=== PATIENT | female | born 1950 | race Caucasian/White ===

== ENCOUNTER 2019-11-05 10:48 | Inpatient (IN) ==
[2019-10-24 17:35] LABS: Basophils # (auto) 0.03 K/uL (0-0.2); Basophils % (auto) 0.4 %; Eosinophils # (auto) 0.06 K/uL (0-0.5); Eosinophils % (auto) 0.8 %; Hematocrit (blood only) 38.5 % (37-47); Hemoglobin 12.7 g/dL (12.0-16.0); Immature Granulocytes # (auto) 0.01 K/uL (0.00-0.02); Immature Granulocytes % (auto) 0.1 %; Lymphocytes # (auto) 2.25 K/uL (1.2-3.4); Lymphocytes % (auto) 28.7 %; Mean Corpuscular Hemoglobin 30.8 pg (25-34); Mean Corpuscular Volume 93.4 fL (80-100); Mean Platelet Volume 10.1 fL (7.4-10.4); Monocytes # (auto) 0.75 K/uL (0.11-0.59); Monocytes % (auto) 9.6 %; Neutrophils # (auto) 4.74 K/uL (1.4-6.5); Neutrophils % (auto) 60.4 %; Platelet Count 285 K/uL (130-400); RDW Coefficient of Variation 14.2 % (11.5-14.5); RDW Standard Deviation 48.5 fL (36.4-46.3); Red Blood Count 4.12 M/uL (4.2-5.4); White Blood Count 7.84 K/uL (4.8-10.8)
[2019-10-24 17:46] LABS: INR 1.2 (0.9-1.1); Partial Thromboplastin Ratio 0.9; Partial Thromboplastin Time 26.1 Seconds (21.0-31.0)
[2019-10-24 17:51] LABS: Blood Urea Nitrogen 17 mg/dl (7-18); Calcium 9.5 mg/dl (8.5-10.1); Carbon Dioxide 26 mmol/L (21-32); Chloride 106 mmol/L (98-107); Est GFR (African American) 69.8; Est GFR (Non-African American) 60.3; Glucose 84 mg/dl (70-99); Potassium 4.2 mmol/L (3.5-5.1); Sodium 139 mmol/L (136-145)
--- NOTE | 2019-10-25 12:23 | Anesthesiology Consultation ---
Date of Service October 25, 2019 Assessment & Plan (1) Encounter for pre-operative examination: Case originally scheduled for May, R/S due to pandemic. Seen by Corine Martel PA-C on 04/20/19. PCP Clearance 05/04/19 = "Pt is currently in stable condition and at low risk for cardiac or pulmonary complications with the proposed procedure." COVID Status: As of 10/21 nurse assessment, patient denies travel to endemic area, known exposure/sick contacts, or symptoms of COVID19. Preoperative COVID19 testing to be completed per surgeon's office's arrangements. Chart Review Chart Review: Acceptable Risk for Surgery and Patient NOT seen in Pre Admission Testing History Surgery Operation Date: 11/05/19 07:30 Proposed Procedures p Right Reverse Total Shoulder Arthroplasty - Leonides Pro DO Height/Weight Height: 4 ft 11.5 in Weight: 66.678 kg Allergies Allergy/AdvReac Type Severity Reaction Status Date / Time No Known Allergies Allergy Verified 10/22/19 15:00 Medications Home Medications Medication Instructions Recorded Confirmed Last Taken amitriptyline 100 mg tablet 100 mg PO HS 04/09/19 10/22/19 Unknown ascorbic acid (vitamin C) 1,000 mg 1 gm PO QAM 04/09/19 10/22/19 Unknown tablet aspirin 81 mg tablet,delayed 81 mg PO QAM 04/09/19 10/22/19 Unknown release docusate sodium 100 mg capsule 100 mg PO QPM 04/09/19 10/22/19 Unknown ezetimibe 10 mg tablet 10 mg PO HS 04/09/19 10/22/19 Unknown latanoprost 0.005 % eye drops 1 drops OP QPM 04/09/19 10/22/19 Unknown lisinopril 10 mg tablet 10 mg PO QAM 04/09/19 10/22/19 Unknown lorazepam 1 mg tablet 1 mg PO TID PRN 04/09/19 10/22/19 Unknown meloxicam 7.5 mg tablet 7.5 mg PO QAM 04/09/19 10/22/19 Unknown omeprazole 20 mg capsule,delayed 20 mg PO QAM 04/09/19 10/22/19 Unknown release oxybutynin 3.9 mg/24 hr semiweekly 3.9 mg TRANSDERMAL 2XWK 04/09/19 10/22/19 Unknown transdermal patch cholecalciferol (vitamin D3) 1,000 unit PO QAM 04/17/19 10/22/19 Unknown [Vitamin D3] Past Medical History Medical History Arthritis Eye pressure preventative eye drops/denies glaucoma GERD (gastroesophageal reflux disease) controlled High blood pressure History of anxiety Hyperlipidemia Hypertension Osteoarthritis Overactive bladder Past Surgical History Surgical History History of tooth extraction Hx of arthroscopy of right knee Hx of bilateral cataract extraction WITH LENS IMPLANTS Hx of colonoscopy Hx of hysterectomy Hx of shoulder surgery LEFT Social History Smoking Status: Never smoker Do You Dip or Chew Tobacco: No Hx Alcohol Use: No Hx Substance Use: No substance use type: does not use Testing Laboratory Results 10/24/19 13:57 10/24/19 13:57 PT 13.0 Seconds (9.0-12.0) H 10/24/19 13:57 INR 1.2 (0.9-1.1) H 10/24/19 13:57 APTT 26.1 Seconds (21.0-31.0) 10/24/19 13:57 Blood Type A Negative 10/24/19 13:58 Antibody Screen NEGATIVE 10/24/19 13:58 Electrocardiogram Date: 04/20/19 Findings: + NSR @ (91bpm) Chest X-Ray Date: 04/20/19 Findings: + NAD
--- NOTE | 2019-11-01 07:33 | History & Physical Report ---
Date of Service November 01, 2019 Assessment & Plan (1) Osteoarthritis, shoulder: We will proceed with a right reverse shoulder arthroplasty. Postoperatively she will be placed in a sling and kept overnight in the hospital for postoperative medical management. She plans to [facility] upon discharge. Present on Admission?: Yes History of Present Illness Chief Complaint: Osteoarthritis of the right shoulder Primary Care Provider: Юлия Shanks is a pleasant 69-year-old female who is been complaining of chronic right shoulder pain. She has had multiple cortisone injections and a Synvisc injection by another provider. Unfortunately she continues to have right shoulder pain and decreased motion. X-rays and clinical examination have been diagnostic for advanced osteoarthritis of the right shoulder. After failing conservative treatment, she has elected to proceed with a right reverse shoulder arthroplasty. Allergies Allergy/AdvReac Type Severity Reaction Status Date / Time No Known Allergies Allergy Verified 10/22/19 15:00 Home Medications Home Medications Medication Instructions Recorded Confirmed Type amitriptyline 100 mg tablet 100 mg PO HS 04/09/19 10/22/19 History ascorbic acid (vitamin C) 1,000 mg 1 gm PO QAM 04/09/19 10/22/19 History tablet aspirin 81 mg tablet,delayed 81 mg PO QAM 04/09/19 10/22/19 History release docusate sodium 100 mg capsule 100 mg PO QPM 04/09/19 10/22/19 History ezetimibe 10 mg tablet 10 mg PO HS 04/09/19 10/22/19 History latanoprost 0.005 % eye drops 1 drops OP QPM 04/09/19 10/22/19 History lisinopril 10 mg tablet 10 mg PO QAM 04/09/19 10/22/19 History lorazepam 1 mg tablet 1 mg PO TID PRN 04/09/19 10/22/19 History meloxicam 7.5 mg tablet 7.5 mg PO QAM 04/09/19 10/22/19 History omeprazole 20 mg capsule,delayed 20 mg PO QAM 04/09/19 10/22/19 History release oxybutynin 3.9 mg/24 hr semiweekly 3.9 mg TRANSDERMAL 2XWK 04/09/19 10/22/19 History transdermal patch cholecalciferol (vitamin D3) 1,000 unit PO QAM 04/17/19 10/22/19 History [Vitamin D3] Past Med/Surg History Medical History Arthritis Eye pressure preventative eye drops/denies glaucoma GERD (gastroesophageal reflux disease) controlled High blood pressure History of anxiety Hyperlipidemia Hypertension Osteoarthritis Overactive bladder Surgical History History of tooth extraction Hx of arthroscopy of right knee Hx of bilateral cataract extraction WITH LENS IMPLANTS Hx of colonoscopy Hx of hysterectomy Hx of shoulder surgery LEFT Social History Smoking Status: Never smoker Second Hand Exposure: No; Hx Alcohol Use: No Hx Substance Use: No Preferred Language: Lao Communication Ability: Effective Fur Designer Required: No Beliefs That Will Affect Care: None Current Living Situation: Alone Feels Safe at Home: Yes Review of Systems Review of Systems: All systems reviewed & are unremarkable except as noted in HPI & below Physical Exam Constitutional: WD/WN, vitals as above Eyes: PERRL, conjunctivae normal, anicteric sclerae ENMT: external ear and nose normal, oropharynx normal Neck: trachea midline, no thyromegaly Respiratory: normal respiratory effort Cardiovascular: RRR, no murmur, no edema Gastrointestinal (Abdomen): normal bowel sounds, soft, nontender, no hepatosplenomegaly Musculoskeletal: Physical examination of the right shoulder reveals decreased range of motion and significant weakness. There is tenderness palpation along the anterior glenohumeral joint line. The right upper extremity is neurovascularly intact. Psychiatric: A+Ox3, euthymic affect Results & Data Results & Data ([facility]) Diagnostic Findings Radiographs of the right shoulder show some signs of osteoarthritis with blunting of the greater tuberosity and some superior migration of the humeral head on the glenoid. PG Care Time/CCT Total # of Minutes Spent Total Time Spent with Patient: Total time spent is greater than 50% in coordination of care (as documented) at patient's floor/unit and/or counseling patient: Coding Level of Care Code 00046 Initial Inpt Care Lvl 2 Diagnoses Osteoarthritis, shoulder M19.019
[~2019-11-05 10:48] MED LIST: ACETAMINOPHEN 500 MG TAB PO SCH; BUPIVACAINE 0.5 % 5 MG/1 ML PF 10ML VIAL ONE; FAMOTIDINE 20 MG TAB PO SCH; GABAPENTIN 300 MG CAP PO SCH; LR 15ML/HR IV SCH; LR 60ML/HR IV SCH; ROPIVACAINE 0.5% HCL/PF 150 MG, BUPIVACAINE 0.5% MPF 30 ML, EPINEPHrine 30MG/30ML (OR U... INSTIL SCH; TRANEXAMIC ACID 1,000 MG **IV Intra-op IV SCH; TRANEXAMIC ACID 1,000 MG **IV Pre-op IV SCH; ceFAZolin 1000MG 1,000 MG/7.5 ML SYR IV SCH; dexAMETHasone 4 MG TAB PO SCH
[2019-11-05] MEDS ORDERED: MIDAZOLAM HCL 1 MG/ML 2ML VIAL ONE (11:51)
[2019-11-05] MEDS ORDERED: LIDOCAINE HCL 2% 2 ML VIAL/AMP(20MG/ML) INFIL ONE (11:51)
[2019-11-05] MEDS ORDERED: fentaNYL citrate 100 MCG/2 ML VIAL ONE (11:51)
[2019-11-05] MEDS ORDERED: PROPOFOL IV EMULSION 10 MG/ML 20 ML VIAL IV ONE (11:51)
[2019-11-05] MEDS ORDERED: ROCURONIUM BROMIDE 10 MG/ML 5 ML VIAL IV ONE (11:51)
--- NOTE | 2019-11-05 12:34 | History & Physical Bridge Note ---
Date of Service November 05, 2019 History & Physical Bridge Note I have examined the patient, reviewed the History & Physical and in the interval since the performance of the History & Physical I have noted the following changes of clinical significance: no changes noted
[2019-11-05] MEDS ORDERED: ORTHO JOINT ANESTHETIC ONE (12:54)
[2019-11-05] MEDS ORDERED: ePHEDrine sulfate 50 MG/ML AMP IV PRN (13:05)
[2019-11-05] MEDS ORDERED: METOCLOPRAMIDE HCL INJ 5 MG/ML 2 ML VIAL IV PRN ×2 (13:05→16:20)
[2019-11-05] MEDS ORDERED: HYDROmorphone INJ 2 MG/ML SYR/VIAL IV PRN (13:05)
[2019-11-05] MEDS ORDERED: fentaNYL citrate 100 MCG/2 ML VIAL IV PRN (13:05)
[2019-11-05] MEDS ORDERED: PROMETHAZINE HCL 12.5 MG in SODIUM CHLORIDE 0.9% 50 ML IV PRN (13:05)
[2019-11-05] MEDS ORDERED: ONDANSETRON INJ 2 MG/ML 2 ML VIAL IV PRN ×2 (13:05→16:20)
[2019-11-05] MEDS ORDERED: ATROPINE SULFATE 0.1 MG/ML 10ML SYR IV PRN (13:05)
--- NOTE | 2019-11-05 14:42 | Operative Report ---
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 X-rays and clinical examination have been diagnostic for advanced osteoarthritis of the right shoulder. After failing conservative treatment, she elected proceed with a right reverse shoulder arthroplasty. Description of Procedure A CPT code modifier 59: The long head of the biceps tendon was enlarged and inflamed consistent with tendinopathy. A tenodesis was opted. This was a separate and distinct portion of the procedure. For these reasons, a CPT code modifier 59 will be added to this case. Implants used: I used a [employer] Comprehensive reverse total shoulder arthroplasty system with a size 8 press fit micro humeral stem, a +6 humeral tray and a standard humeral bearing, a 25 mm medium augment baseplate with a 6.5 mm central screw and superior and inferior locking screws, and a size 40 eccentric glenosphere. Rimma arrived at [facility] for the above procedure. She was seen in the preoperative holding area and the operative extremity was identified and signed. She was given a preoperative antibiotic, TXA, and an interscalene nerve block. She was taken back to the operating room, laid on table in supine position, and put under general anesthesia. She was then put into the beachchair position. The shoulder was then prepped and draped in sterile fashion. A timeout was done and the patient and the operative extremity was properly identified. A deltopectoral approach was used. Dissection was taken down through the fascia and the deltoid was retracted laterally and the conjoined tendon was retracted medially. The anterior shoulder was exposed. The biceps groove was opened up and the biceps tendon was examined extensively. The biceps tendon demonstrated enlargement and inflammatory changes consistent with longstanding inflammation in the context of osteoarthritis and cuff arthropathy. The long head of the biceps tendon was then tenodesed to the upper border of the pectoralis major. This was a separate and distinct portion of the procedure. The subscapularis was then directly released off the lesser tuberosity with a peel technique. The inferior capsule was released and the humeral head was dislocated. A canal finding reamer was sent down the center of the humeral canal. Sequential reaming up to a size 8 reamer was done. Off that reamer, a proximal humeral resection guide was placed. The proximal humerus was resected at 135 of inclination and 25 of retroversion. Osteophytes were then removed and the glenoid was exposed. Time was spent doing a complete capsular and labral release. The glenoid guide was then placed in the inferior aspect of the glenoid. A 3.2 mm Steinmann pin was then placed into the glenoid vault at 10 of inclination. The glenoid baseplate was then reamed. The final size 25 mm medium augment baseplate was then impacted in the place. A 6.5 mm central screw was then placed followed by superior and inferior locking screws. A 40 mm eccentric glenosphere was then impacted into place. Surrounding soft tissues were then injected with 100 cc an orthopedic pain control cocktail. The proximal humerus was then exposed. Sequential broaching of the humerus up to a size 8 broach was done. Off that broach a +6 humeral tray was trialed. The shoulder was then red uced, brought through a full range of motion, and felt to be stable. The shoulder was then dislocated and the broach was removed. The final size 8 micro press-fit humeral stem was then impacted into place. A standard humeral bearing was then snapped onto a +6 humeral tray. The humeral tray was then impacted onto the humeral stem. The shoulder was once again reduced, brought through a full range of motion, and felt to be stable. The subscapularis was then tenodesed back to the lesser tuberosity with transosseous FiberWire sutures and side to side sutures with the arm in 45 of external rotation. A dilute betadyne lavage was then done for 3 minutes. The joint was then irrigated with normal saline solution. Hemostasis was obtained. The interval was closed with 2-0 Vicryl suture. The skin was then closed with 2-0 Vicryl and gelacio. A Silverlon dressing was placed and the arm was rested in a regular arm sling. She was then extubated and transferred to a hospital bed. She taken to the postanesthesia care unit in stable condition. She tolerated the procedure well. Leonides Guzman PA-C, was present for the entire procedure. He was critical for patient positioning, prepping, draping, retraction exposure, wound closure and application of sterile dressing. I attest to the content of the Intraoperative Record and any orders documented therein. Any exceptions are noted below.
[2019-11-05] MEDS ORDERED: GLYCOPYRROLATE 0.2 MG/ML VIAL ONE (15:08)
[2019-11-05] MEDS ORDERED: LABETALOL HCL IV 5 MG/ML 20ML IV ONE (15:08)
[2019-11-05] MEDS ORDERED: NEOSTIGMINE METHYLSULFATE 5 MG/5 ML SYR ONE (15:08)
--- NOTE | 2019-11-05 15:28 | XRay Report ---
XR shoulder RT min 2V routine HISTORY: 69 years-old Female Post shoulder surgery right shoulder total joint arthroplasty COMPARISON: Chest radiographs 04/20/2019 TECHNIQUE: 3 views of the right shoulder FINDINGS: Reverse right shoulder total joint arthroplasty demonstrates satisfactory alignment. Overlying skin s taples are noted along with expected postsurgical soft tissue swelling and deep tissue air. No acute fracture or retained foreign body. Hypoinflation of the lungs. IMPRESSION: Reverse right shoulder total joint arthroplasty with expected postoperative findings. ACT 112: Negative or not required by law. The above report was generated using voice recognition software. It may contain grammatical, syntax o r spelling errors. Electronically signed by: Gilmar Carbajal M.D. 11/05/2019 3:27 PM
--- NOTE | 2019-11-05 15:40 | Anesthesiology Progress Note ---
Date of Service November 05, 2019 Anesthesia Post Procedure Vital Signs Vital Signs: Temp Pulse Pulse Resp BP Pulse Ox 11/05/19 15:30 36.3 C L 78 15 129/71 99 11/05/19 15:20 82 17 131/81 99 11/05/19 15:10 80 19 121/70 98 11/05/19 15:02 36.2 C L 81 16 113/70 97 11/05/19 11:10 37.2 C 100 H 20 129/73 98 Transfer of Care Handoff Completed per policy Notes Mental Status: alert / awake / arousable and participated in evaluation Patient Amnestic to Procedure: Yes Nausea / Vomiting: adequately controlled Pain: adequately controlled Airway Patency, RR, SpO2: stable & adequate BP & HR: stable & adequate Hydration State: stable & adequate Anesthetic Complications: no major complications apparent
[2019-11-05] MEDS ORDERED: MAGNESIUM HYDROXIDE SUSP 30 ML UDC PO PRN (16:20)
[2019-11-05] MEDS ORDERED: HYDROmorphone INJ 0.5 MG/0.5 ML SYR IV PRN (16:20)
[2019-11-05] MEDS ORDERED: NALOXONE HCL 0.4 MG/1 ML VIAL/CARP IV PRN (16:20)
[2019-11-05] MEDS ORDERED: bisacodyL 10 MG SUPP PR PRN (16:20)
[2019-11-05] MEDS ORDERED: oxyCODONE HCL IR 5 MG TAB (IMMEDIATE RELEASE) PO PRN (16:20)
[2019-11-05] MEDS ORDERED: LORazepam 1 MG TAB PO PRN (16:26)
[2019-11-05] MEDS: SODIUM CHLORIDE 0.9% 1000ML 1,000 ML IV SCH (17:06)
[2019-11-05] MEDS: KETOROLAC TROMETHAMINE 15 MG/ML VIAL IV SCH ×2 (19:09→23:44)
[2019-11-05] MEDS ORDERED: NON-FORMULARY PATIENT'S OWN MED TD ONE (20:00)
[2019-11-05] MEDS ORDERED: COUGH DROP (SUGAR FREE) LOZ 24 LOZ/1 BOX BUCCAL ONE (20:20)
[2019-11-05] MEDS: ceFAZolin 2000MG 2,000 MG/15 ML SYR IV SCH (20:37)
[2019-11-05] MEDS: DOCUSATE SODIUM 100 MG CAP PO SCH (20:38)
[2019-11-05] MEDS ORDERED: AMITRIPTYLINE HCL 100 MG TAB PO SCH (21:00)
[2019-11-05] MEDS ORDERED: SENNA 8.6 MG TAB PO SCH (21:00)
[2019-11-05] MEDS ORDERED: LATANOPROST 0.005% OP SOLN 2.5 ML BTL OP SCH (21:00)
[2019-11-05] MEDS ORDERED: EZETIMIBE 10 MG TABLET PO SCH (21:00)
[2019-11-05] MEDS: ACETAMINOPHEN 500 MG TAB PO SCH (21:17)
[2019-11-06] MEDS: SODIUM CHLORIDE 0.9% 1000ML 1,000 ML IV SCH (02:52)
[2019-11-06] MEDS: ceFAZolin 2000MG 2,000 MG/15 ML SYR IV SCH (05:03)
[2019-11-06] MEDS: ACETAMINOPHEN 500 MG TAB PO SCH (05:04)
[2019-11-06] MEDS: KETOROLAC TROMETHAMINE 15 MG/ML VIAL IV SCH ×2 (05:04→12:08)
[2019-11-06 06:15] LABS: Hematocrit (blood only) 33.1 % (37-47); Hemoglobin 10.9 g/dL (12.0-16.0); Immature Granulocytes # (auto) 0.06 K/uL (0.00-0.02); Immature Granulocytes % (auto) 0.4 %; Lymphocytes # (auto) 1.05 K/uL (1.2-3.4); Lymphocytes % (auto) 7.2 %; Mean Corpuscular Hemoglobin 30.4 pg (25-34); Mean Corpuscular Hgb Conc 32.9 g/dL (32-36); Mean Corpuscular Volume 92.2 fL (80-100); Mean Platelet Volume 9.6 fL (7.4-10.4); Monocytes % (auto) 6.2 %; Neutrophils # (auto) 12.56 K/uL (1.4-6.5); Neutrophils % (auto) 86.2 %; Platelet Count 253 K/uL (130-400); RDW Coefficient of Variation 13.8 % (11.5-14.5); RDW Standard Deviation 46.5 fL (36.4-46.3); Red Blood Count 3.59 M/uL (4.2-5.4); White Blood Count 14.57 K/uL (4.8-10.8)
--- NOTE | 2019-11-06 06:45 | Orthopedic Progress Note ---
Date of Service November 06, 2019 Assessment & Plan (1) Status post reverse arthroplasty of right shoulder: Overall she is doing fairly well. She is not having much pain in the right shoulder. She will be seen by physical therapy today for ambulation and range of motion exercises. She can be discharged home later today. She will follow-up with orthopedics in 2 weeks. Present on Admission?: Yes Admission and Anticipated Discharge Date Admission Date: November 05, 2019 Kai Shanks was seen and examined at bedside this morning. Overall she is doing very well. She is not having much pain in the right shoulder. She was able to get some sleep last night. She has no complaints. Physical Exam Musculoskeletal: On physical examination of the right shoulder, the Silverlon dressing is clean and dry. Her radial, median, and ulnar nerves are checked intact at her wrist. Her axillary nerve was not checked yet. She is wearing her sling as instructed. Results & Data ([facility]) Vital Signs (Past 12 Hours) Vital Signs Temp Pulse Resp BP Pulse Ox 11/06/19 02:50 36.4 C L 79 18 108/73 93 11/05/19 23:19 36.4 C L 81 18 116/73 92 11/05/19 19:58 36.4 C L 91 H 16 109/73 95 11/05/19 19:15 36.6 C 75 16 107/69 94 Laboratory Results H & H 10/24/19 11/06/19 Range/Units 13:57 05:51 Hgb 12.7 10.9 L (12.0-16.0) g/dL Hct 38.5 33.1 L (37-47) % Coagulation 10/24/19 Range/Units 13:57 INR 1.2 H (0.9-1.1) Diagnostic Findings Postoperative x-rays of the right shoulder show the prosthesis to be in anatomic alignment without any evidence of fracture, dislocation, or loosening. PG Care Time/CCT Total # of Minutes Spent Total Time Spent with Patient: Total time spent is greater than 50% in coordination of care (as documented) at patient's floor/unit and/or counseling patient: Coding Level of Care Code None Diagnoses Status post reverse arthroplasty of right shoulder Z96.611
--- NOTE | 2019-11-06 06:46 | Discharge Summary ---
Date of Service November 06, 2019 Admission HPI Per Admitting Provider Rimma is a pleasant 69-year-old female who is been complaining of chronic right shoulder pain. She has had multiple cortisone injections and a Synvisc injection by another provider. Unfortunately she continues to have right shoulder pain and decreased motion. X-rays and clinical examination have been diagnostic for advanced osteoarthritis of the right shoulder. After failing conservative treatment, she has elected to proceed with a right reverse shoulder arthroplasty. Principal Diagnosis Right reverse shoulder replacement Discharge Data Allergies Allergy/AdvReac Type Severity Reaction Status Date / Time No Known Allergies Allergy Verified 11/05/19 11:13 Consultations 11/05/19 16:20 Consult Case Management - Discharge Planning Routine Procedures Performed Operation Date: 11/05/19 13:00 Actual Procedures p Right Reverse Total Shoulder Arthroplasty(Right) - Leonides Pro DO Ordered Studies 11/05/19 05:00 US - OR guided needle placemen Routine Hospital Course (1) Status post reverse arthroplasty of right shoulder: On November 05, 2019 Rimma arrived at [facility] and underwent a right reverse shoulder arthroplasty without complication. She had a general anesthetic and a right interscalene nerve block. Postoperatively she was placed in an arm sling and transferred to the general orthopedic floors. Her hospital course was uneventful. On postop day #1 her H&H was stable and her pain was well controlled. She was able to participate well with physical therapy doing ambulation and range of motion exercises. She was then discharged home. She will follow-up with orthopedics in 2 weeks. Total Time Total Time Spent Total Time Spent (In Minutes): 20 Discharge Plan Discharge Items Patient Disposition: Home - Home Health Services Reason For Visit: DJD RT SHOULDER Discharge Diagnosis: Right shoulder replacement Activity: As commented below Non-emergency contact: Surgeon Call non-emergency contact if: your wound has increased redness and your wound has increased drainage Follow-up/Referrals: Юлия Rodriguez D.O. [Primary Care Provider] - Diet: Regular Addtl Attending Provider Instructions: Activity and Therapy Recommendations: * If you are using [facility] then therapy will be provided at your home until they feel you have accomplished all of your goals. * If you are using [facility] then Physical Therapy will be provided until they feel you are ready to start Outpatient Physical Therapy. * If you are not using home therapy then Outpatient Physical Therapy should start about 3-5 days from your day of surgery. Therapy will last about 8-12 weeks * Wear your sling for 3 weeks, unless otherwise instructed. You may remove your sling to shower and to dress, but otherwise, you should be in your sling at all times, including while sleeping * The shoulder replacement is very stable and you can use your hand while in the sling * You were shown a series of exercises in the hospital. Do these exercises daily including the exercises you were shown in physical therapy. Medications: * Narcotic You will likely be sent home from the hospital with a prescription for the narcotic pain medication that worked best throughout your stay. * Other medications may be prescribed for specific circumstances. If you have any questions, please call the office at . * Resume previous home medications unless otherwise instructed Dressing Care: Leave the Silverlon dressing in place for 7 days. After 7 days you may remove the dressing. If the incision is not draining then you may leave the eglacio open to air. If there is a little bit of drainage or if the gelacio are getting stuck on your clothing then cover the incision with a dry dressing. The gelacio will be removed at your 2 week follow-up appointment. Showering: You may shower with the Silverlon dressing in place. Do not let the shower spray hit the dressing directly. Pat the Silverlon dressing dry. If the dressing becomes wet underneath, then simply remove the dressing. Keep the incision dry until you are 7 days out from the day of surgery. After 7 days you may remove the Silverlon dressing and shower with the gelacio exposed. Let soapy water run over the gelacio and pat them dry. Do not scrub or soak the incision. Things To Watch For: * Drainage from the incision site that occurs more than one week after your surgery. * Increased redness at the incision site. * Fever above 102 degrees Fahrenheit. * Unusual chest pain or shortness of breath. * Call [facility] at with any of the above problems Follow-Up Visit: Follow-up with Dr. Pro's PA (Leonides Guzman) 2-3 weeks after your day of surgery. He will remove your gelacio and answer any questions. If you have any additional questions or concerns, Dr Pro is usually in the office at the same time and will be available An appointment was probably scheduled when you signed-up for surgery in the office. If you have any questions call More detailed instructions as well as Frequently Asked Questions were provided in a folder by our office when you signed-up for surgery. Please review these instructions when you get home. If you have any further questions or concerns, please feel free to call the office at [phone] Pending Studies at Discharge: No Stand-Alone Forms: My [facility], Smoking Cessation Medications and DC Order Prescriptions: New tramadol 50 mg tablet 50 mg PO Q8H PRN (Reason: pain) Qty: 30 RF: 0 Continued amitriptyline 100 mg tablet 100 mg PO HS RF: 0 lorazepam 1 mg tablet 1 mg PO TID PRN (Reason: Anxiety) RF: 0 ezetimibe 10 mg tablet 10 mg PO HS RF: 0 lisinopril 10 mg tablet 10 mg PO QAM RF: 0 meloxicam 7.5 mg tablet 7.5 mg PO QAM RF: 0 omeprazole 20 mg capsule,delayed release(DR/EC) 20 mg PO QAM RF: 0 latanoprost 0.005 % drops 1 drops OP QPM RF: 0 docusate sodium [Stool Softener] 100 mg capsule 100 mg PO QPM RF: 0 aspirin [Adult Low Dose Aspirin] 81 mg tablet,delayed release (DR/EC) 81 mg PO QAM RF: 0 ascorbic acid (vitamin C) 1,000 mg tablet 1 gm PO QAM RF: 0 Oxytrol 3.9 mg/24 hr patch semiweekly 3.9 mg transdermal 2XWK RF: 0 cholecalciferol (vitamin D3) [Vitamin D3] 25 mcg (1,000 unit) Tablet 1,000 unit PO QAM RF: 0 Discharge Orders: Discharge Order (Routine); Ordered 11/06/19 Ordered By: Leonides Pro Admission Data Admit Date/Time: 11/05/19 15:04 Attending Provider: Leonides Pro Admit Provider: Leonides Pro Primary Care Provider: Юлия Rodriguez Coding Level of Care Code D/C Day Management <30 mins Diagnoses Status post reverse arthroplasty of right shoulder Z96.611
[2019-11-06 06:49] LABS: BUN Creatinine Ratio 13.7 (10-20); Calcium 8.7 mg/dl (8.5-10.1); Creatinine Clr Calc Pharmacy 42.9 ml/min; Est GFR (African American) 66.4; Est GFR (Non-African American) 57.3; Potassium 4.2 mmol/L (3.5-5.1)
[2019-11-06] MEDS ORDERED: dexAMETHasone 4 MG TAB PO SCH (08:00)
[2019-11-06] MEDS ORDERED: ASPIRIN 81 MG ECTAB PO SCH (09:00)
[2019-11-06] MEDS ORDERED: MULTIVITAMIN TAB PO SCH (09:00)
[2019-11-06] MEDS ORDERED: lisinopril 10 MG TAB PO SCH (09:00)
[2019-11-06] MEDS ORDERED: PANTOprazole 40 MG TAB PO SCH (09:00)
[2019-11-06] MEDS: DOCUSATE SODIUM 100 MG CAP PO SCH (09:16)
== END 2019-11-06 13:03 | disposition home health service (06) | DRG 483 ==
LOC: ASU 10:48 → 3E 15:04

== ENCOUNTER 2021-12-11 10:01 | Observation (INO) ==
--- NOTE | 2021-11-09 14:54 | PAT Medication Instructions ---
Medication Instructions Date of Service November 09, 2021 Home Medications Medication Instructions Recorded tramadol 50 mg tablet 50 mg PO Q8H PRN pain #30 tabs 11/06/19 amitriptyline 100 mg tablet 100 mg PO HS ascorbic acid (vitamin C) 1,000 mg tablet 1 gm PO QAM aspirin 81 mg tablet,delayed release (Adult Low Dose Aspirin) 81 mg PO QAM docusate sodium 100 mg capsule (Stool Softener) 100 mg PO QPM PRN Constipation ezetimibe 10 mg tablet 10 mg PO HS latanoprost 0.005 % eye drops 1 drops ophthalmic (eye) QPM lisinopril 10 mg tablet 10 mg PO QAM meloxicam 7.5 mg tablet 7.5 mg PO QAM omeprazole 20 mg capsule,delayed release 20 mg PO QAM oxybutynin 3.9 mg/24 hr semiweekly transdermal patch (Oxytrol) 3.9 mg transdermal 2XWK cholecalciferol (vitamin D3) 25 mcg (1,000 unit) tablet (Vitamin D3) 1,000 unit PO QAM tramadol 50 mg tablet 50 mg PO Q8H PRN pain B6 1.7 mg-folic 400 mcg-B12 2.4 [id number]-sgezeiuffvlw oral capsule (Neuriva Plus Brain Performance) 1 cap PO QAM ASK your surgeon for instructions meloxicam 7.5 mg tablet 7.5 mg PO QAM ASK your prescriber and surgeon amitriptyline 100 mg tablet 100 mg PO HS STOP taking 2 weeks before surgery (or as soon as possible if surgery is within 2 weeks) B6 1.7 mg-folic 400 mcg-B12 2.4 jri-nchavv-mtbcnyzqlihs oral capsule (Neuriva Plus Brain Performance) 1 cap PO QAM DO NOT take the morning of surgery ascorbic acid (vitamin C) 1,000 mg tablet 1 gm PO QAM lisinopril 10 mg tablet 10 mg PO QAM oxybutynin 3.9 mg/24 hr semiweekly transdermal patch (Oxytrol) 3.9 mg transdermal 2XWK cholecalciferol (vitamin D3) 25 mcg (1,000 unit) tablet (Vitamin D3) 1,000 unit PO QAM Take morning of surgery With a small sip of water, OTHERWISE NOTHING TO EAT OR DRINK AFTER MIDNIGHT: aspirin 81 mg tablet,delayed release (Adult Low Dose Aspirin) 81 mg PO QAM (continue as normal unless told otherwise by surgeon) omeprazole 20 mg capsule,delayed release 20 mg PO QAM tramadol 50 mg tablet 50 mg PO Q8H PRN pain (if needed) Take evening before surgery docusate sodium 100 mg capsule (Stool Softener) 100 mg PO QPM PRN Constipation (if needed) ezetimibe 10 mg tablet 10 mg PO HS latanoprost 0.005 % eye drops 1 drops ophthalmic (eye) QPM tramadol 50 mg tablet 50 mg PO Q8H PRN pain (if needed) Other Notes If you have any questions please call us at [phone] or [phone] or [phone] or [phone]
--- NOTE | 2021-11-24 10:29 | Anesthesiology Consultation ---
Date of Service November 24, 2021 Assessment & Plan (1) Encounter for pre-operative examination: - Hx diarrhea: Per PCP note 09/07/21, dx aeromonas infection.. "knee supposed to be replaced in november but may end up wait pending this GI issue" > Pt completed treatment from infectious disease. Diarrhea now resolved, stools back to baseline. - COVID screening: Per assessment on 11/24: No known COVID-19 positive contacts or current COVID-19 related symptoms. Travel screen negative. Patient vaccinated. Covid positive (11/09/21 - [place]/report scanned in). Symptoms (onset was 11/05): weakness, slight cough/congestion. Rx'd Paxlovid > symptoms resolved. Pt can proceed as scheduled without additional preop Covid testing or additional Covid contact precautions per 90 days protocol. - Outpatient joint assessment: Pt currently scheduled for inpatient pathway. If surgeon requests review for outpatient joint pathway, patient is not recommended candidate for outpatient joint program from anesthesia standpoint. - Hematology ([facility]) office visit (08/13/21): " Mild prolongation of her PTT of unclear etiology. 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 Her clinical bleeding history is negative.. Since factor VII deficiency is a rare disease, we encouraged the pt continue to follow up with Dr Soriano at the hemophilia ctr in [place] for further evaluation and management.. She was encouraged to avoid NSAID and/or aspirin.. Fall and b leeding precautions advised.. pt will follow up with Dr Soriano at [facility] in [place] for Factor VII deficiency and manage further surgical procedures.. pt is pending rt knee surgery with Dr. Pro.. Pt will call Dr. Soriano's office to coordinate the surgery." - Preop CXR: Done 11/24/21 shows Left substernal thyroid nodule/goiter again noted. This results in mild right tracheal deviation. Case reviewed with Dr. Cerda. He feels that if hematology feels neuraxial anesthesia would be okay, then nothing further needed in regards to the tracheal deviation. But if hematology recommends GA, then we would need to consider CT scan for further evaluation. Received response from hematology that no contraindication/issue with spinal/neuraxial anesthesia- okay to start TXA infusion 15-30 minutes prior to SAB. - Hematology ([facility]/Dr. Soriano) note (12/08/21): "Immediately prior to the procedure, please infuse Tranexemic Acid 1GM mixed in 100ml of NSS and administer over 30 minutes via pump. Once complete, procedure can begin. No contraindication to neuralaxis anesthesia.. Okay to start TXA IV 15-30 minutes prior to anesthesia.. If unexpected/unforeseen bleeding should occur, please administer Novoseven 2mg slow IV push .. Per verbal clarification with Dr. Soriano- No contraindication with neuraxial anethesia/SAB per verbal 12/08/21.* Post-op TXA tablet instructions listed as well (pharmacy/surgeon aware). Confirmed with hematology/[facility] pharmacy that we will be using [facility] TXA infusion and patient will be bringing Novoseven and post-op TXA tablets (confirmed with patient's daughter that these were received and they will bring DOS. Sanam at OR aware of need to bring to pharmacy as soon as received for pharmacy to verify). - Case reviewed with Dr. Kumari. Jose M to proceed with surgery as scheduled. Aware of hematology perioperative recommendations. Chart Review Chart Review: Acceptable Risk for Surgery and Patient seen in Pre Admission Testing Teaching & Discussion Pre-Anesthesia Teaching/Discussion Notes: Instructed NPO after midnight before surgery,except medications with 15 cc of water. Medication instructions provided according to the PAT guidelines. History Surgery Operation Date: 12/11/21 12:50 Proposed Procedures p Right Total Knee Arthroplasty - Leonides Pro DO Height/Weight Height: 4 ft 11 in Weight: 67.7 kg Allergies Allergy/AdvReac Type Severity Reaction Status Date / Time No Known Allergies Allergy Verified 11/02/21 15:57 Medications Home Medications Medication Instructions Recorded Confirmed Last Taken amitriptyline 100 mg tablet 100 mg PO HS 04/09/19 11/02/21 Unknown ascorbic acid (vitamin C) 1,000 mg 1 gm PO QAM 04/09/19 11/02/21 11/04/19 08:00 tablet aspirin 81 mg tablet,delayed 81 mg PO QAM 04/09/19 11/02/21 11/04/19 08:00 release (Adult Low Dose Aspirin) docusate sodium 100 mg capsule 100 mg PO QPM PRN Constipation 04/09/19 11/02/21 11/04/19 22:00 (Stool Softener) ezetimibe 10 mg tablet 10 mg PO HS 04/09/19 11/02/21 11/04/19 22:00 latanoprost 0.005 % eye drops 1 drops ophthalmic (eye) QPM 04/09/19 11/02/21 11/04/19 22:00 lisinopril 10 mg tablet 10 mg PO QAM 04/09/19 11/02/21 11/04/19 08:00 meloxicam 7.5 mg tablet 7.5 mg PO QAM 04/09/19 11/02/21 10/29/19 omeprazole 20 mg capsule,delayed 20 mg PO QAM 04/09/19 11/02/21 11/04/19 08:00 release oxybutynin 3.9 mg/24 hr semiweekly 3.9 mg transdermal 2XWK 04/09/19 11/02/21 11/02/19 transdermal patch (Oxytrol) cholecalciferol (vitamin D3) 25 1,000 unit PO QAM 04/17/19 11/02/21 11/04/19 08:00 mcg (1,000 unit) tablet (Vitamin D3) tramadol 50 mg tablet 50 mg PO Q8H PRN pain #30 tabs 11/06/19 11/02/21 Unknown B6 1.7 mg-folic 400 mcg-B12 2.4 1 cap PO QAM 11/26/20 11/02/21 Unknown hxs-qauqxd-zdqscmvlumwh oral capsule (Neuriva Plus Brain Performance) iron 1 tab PO DAILY 11/24/21 11/24/21 Unknown Past Medical History Medical History (Updated 11/24/21 @ 11:06 by Corine Martel) Abnormal coagulation profile Following with hematology Mild prolongation of PT (unclear etiology), mild factor VII deficiency Arthritis Eye pressure Preventative eye drops (denies glaucoma) GERD (gastroesophageal reflux disease) Controlled, stable History of anxiety History of COVID-19 Covid positive (11/09 at [place]) Symptoms (onset was 11/05): weakness, slight cough/congestion > resolved Hyperlipidemia Hypertension Well controlled, stable per pt Osteoarthritis Overactive bladder Exercise / Class Metabolic Activity II 4-5 Yardwork/Stairs/Walk up hill (one FS (no CP, no SOB)) Past Family History Family History Other No history of adverse effect of anesthesia No known health problems Past Surgical History Surgical History History of tooth extraction Hx of arthroscopy of right knee Hx of bilateral cataract extraction + lens implant Hx of colonoscopy Hx of hysterectomy Hx of shoulder surgery LEFT Status post reverse arthroplasty of right shoulder Grade 1 view, Mac #3, ETT #7.0, atraumatic, 1 attempt. No issues reported on anesthesia progress note. Past Anesthesia History No Hx of Anesthesia Complications and No Family Hx of Anesthesia Complications History of PONV No Hx of PONV and No Hx of Motion Sickness Social History Smoking Status: Never smoker Do You Dip or Chew Tobacco: No Hx Alcohol Use: No Hx Substance Use: No substance use type: does not use Review of Systems Patient denies chest pain, shortness of breath, dyspnea on exertion, fever, chills, cough, wheezing, palpitations. Physical Exam Vital Signs VITALS BP 127/72 P 81 TEMP 98.2 SP02 99%RA RESP 16 PHYSICAL Full cervical extension range of motion. Full TMJ range of motion. TMD 3 finger breaths Mallampati Score 3 Dentition: full dentures upper/lower Lungs: clear throughout to auscultation Cardiac: regular rate and rhythm, no murmurs noted Spine: normal Carotid arteries: negative bruit Extremities: no edema Lab Results Anesthesia Preop Results Results Anesthesia Widget: WBC 5.24 K/ul (4.8-10.8) 11/24/21 Hgb 12.3 g/dl (12.0-16.0) 11/24/21 Hct 36.6 % (34.1-44.9) 11/24/21 Plt 265 K/uL (130-400) 11/24/21 Na 135 mmol/L (136-145) L 11/24/21 K 4.2 mmol/L (3.5-5.1) 11/24/21 Cl 102 mmol/L (98-107) 11/24/21 CO2 27 mmol/L (21-32) 11/24/21 BUN 15 mg/dl (6-23) 11/24/21 Creat 0.86 mg/dl (0.6-1.2) 11/24/21 Glucose Level 79 mg/dl (70-99(Fasting)) 11/24/21 PT 13.1 Seconds (9.0-12.0) H 11/24/21 PTT 24.9 Seconds (21.0-31.0) 11/24/21 INR 1.2 (0.9-1.1) H 11/24/21 Blood Type A Negative 11/24/21 Antibody Screen NEGATIVE 11/24/21 Testing Electrocardiogram Date: 11/24/21 Findings: + NSR @ (76) Chest X-Ray Date: 11/24/21 FINDINGS: No pneumothorax. No pleural effusions. There are few small bibasilar linear densities consistent with subsegmental atelectasis or scarring. Otherwise, the lungs are clear. The heart is normal in size. Fullness within the left superior mediastinum with mild right tracheal deviation. This remains unchanged and is consistent with a left substernal thyroid nodule/goiter. This is better appreciated on a 04/12/[address]. There is a right shoulder prosthesis. Advanced degenerative changes noted within the left shoulder. IMPRESSION: No acute process within the chest. Left substernal thyroid nodule/goiter again noted. This results in mild right tracheal deviation. COVID-19 Risk Screen Screening Information COVID-19 Screen Date: 11/24/21 Exposure 21 Days Family/Household +COVID Last 21 Days: No Exposure 10 Days Any COVID Exposure Last 10 Days: No Symptoms Last 10 Days Experienced COVID Sx Last 10 Days: No + COVID 0-90 Days COVID + in Last 0-90 Days: Yes + COVID Test 0-10 Day: No + COVID Test 11-90 Day: Yes
[~2021-12-11 10:01] MED LIST changes: +COAGULATION FACTOR VIIA IV PRN; +Ketorolac (*for OR use only*) 30 MG, dexAMETHasone 4 MG, KETAMINE HCL (**OR use only) 1... INFIL SCH; +ROPIVACAINE 0.5% 5 MG/ML 30 ML VIAL ONE; -ROPIVACAINE 0.5% HCL/PF 150 MG, BUPIVACAINE 0.5% MPF 30 ML, EPINEPHrine 30MG/30ML (OR U... INSTIL SCH
--- NOTE | 2021-12-11 11:26 | History & Physical Bridge Note ---
Date of Service December 11, 2021 History & Physical Bridge Note I have examined the patient, reviewed the History & Physical and in the interval since the performance of the History & Physical I have noted the following changes of clinical significance: no changes noted
[2021-12-11] MEDS ORDERED: COAGULATION FACTOR VIIA IV PRN (11:41)
[2021-12-11] MEDS ORDERED: fentaNYL citrate 100 MCG/2 ML VIAL ONE (11:50)
[2021-12-11] MEDS ORDERED: MIDAZOLAM HCL 1 MG/ML 2ML VIAL ONE (11:50)
[2021-12-11] MEDS ORDERED: ORTHO JOINT ANESTHETIC ONE (11:51)
[2021-12-11] MEDS ORDERED: fentaNYL citrate 100 MCG/2 ML VIAL IV PRN (12:12)
[2021-12-11] MEDS ORDERED: ATROPINE SULFATE 0.1 MG/ML 10ML SYR IV PRN (12:12)
[2021-12-11] MEDS ORDERED: ePHEDrine sulfate 50 MG/ML AMP IV PRN (12:12)
[2021-12-11] MEDS ORDERED: HYDROmorphone INJ 2 MG/ML SYR/VIAL IV PRN (12:12)
[2021-12-11] MEDS ORDERED: ONDANSETRON INJ 2 MG/ML 2 ML VIAL IV PRN ×2 (12:12→15:34)
[2021-12-11] MEDS ORDERED: PROPOFOL IV EMULSION 10 MG/ML 20 ML VIAL IV ONE (13:41)
[2021-12-11] MEDS ORDERED: ONDANSETRON INJ 2 MG/ML 2 ML VIAL ONE (13:41)
--- NOTE | 2021-12-11 13:42 | Operative Report ---
PG Post Operative Report Pre & Post Diagnosis Operation Date: 12/11/21 12:50 Pre-Op Diagnosis: Degenerative joint disease right knee. Post-Op Diagnosis: Degenerative joint disease right knee. I identified the patient and participated in the time-out.: Yes Procedure Operation Date: 12/11/21 12:50 Actual Procedures p Right Total Knee Arthroplasty(Right) - Leonides Pro DO Surgeon Leonides Pro DO [employer] Leonides Guzman PA-C Estimated Blood Loss 50 Findings Consistent with Post-Op Diagnosis Specimens Right femoral and tibial bone Description of Procedure Implants used: I used a Kalia Persona total knee arthroplasty system with a size 4 narrow PS femur, C tibia, 31 oval patella, and a size 10 CPS polyethylene bearing. All components were cemented in place with Biomet cement. Rimma arrived [facility] for the above procedure. She was seen in the preoperative holding area and the operative extremity was identified and signed. She was given a preoperative antibiotic, TXA, a spinal anesthetic and an adductor nerve block. She was taken back to the operating room and laid on the table in supine position. She was given basic sedation. The operative knee was then prepped and draped in sterile fashion. A timeout was done, and the patient and the operative extremity was properly identified. A midline incision was made directly over the patella. Dissection was taken down to the extensor mechanism. A subvastus arthrotomy was used. The medial retinaculum was released and the fat pad was mostly excised. The knee was flexed and the ACL, PCL, and meniscus were removed. A drill was sent down the center of the femoral canal followed by an intramedullary gayle. Off that gayle a distal femoral cutting block was placed. 9 mm was resected off the distal femur at 5 of valgus. A posterior referencing AP sizing guide was then placed on the distal femur. The femur measured to be a size 4 narrow. 2 drill holes were placed in 3 of external rotation. A 4-in-1 cutting block was then impacted into place. Anterior, posterior, and chamfer cuts were then made. The proximal tibia was then exposed. An external tibial alignment guide was placed. A tibial cut guide was then anchored in place and the proximal tibia was then resected. The posterior aspect of the knee was then opened up and any additional meniscus fragments and osteophytes were removed. The tibia measured to be a size C. The tibial plate was then placed in the appropriate rotation and the tibia was drilled and punched. Trial components were then placed. I used a size 10 CPS polyethylene insert. The knee was brought through a full range of motion and felt to be stable. The peg holes for the femoral component were then drilled. The patella was then everted and 9 mm was resected off the posterior aspect of the patella. The patella measured to be a size 31 oval. 3 peg holes were then drilled. A trial patella was placed. The knee was once again brought through a full range of motion and felt to be stable. Trial components were then removed. The surrounding soft tissues were injected with 100 cc of an orthopedic pain control cocktail. All components were then cemented into place with Biomet cement. The final polyethylene insert was then snapped into place. Once cement was dry the tourniquet was deflated. Hemostasis was obtained. A dilute betadyne lavage was then done for 3 minutes. The joint was then irrigated with normal saline solution. The subvastus arthrotomy was then closed with #1 Vicryl suture. The skin was closed with 2-0 Vicryl, 3-0V lock suture, and gelacio. A soft compressive dressing was placed. She was then transferred to a hospital bed and taken to the postanesthesia care unit in stable condition. She tolerated the procedure well. Leonides Guzman PA-C, was present for the entire procedure. He was critical for patient positioning, prepping, draping, retraction exposure, wound closure and application of sterile dressing. I attest to the content of the Intraoperative Record and any orders documented therein. Any exceptions are noted below.
--- NOTE | 2021-12-11 14:39 | XRay Report ---
RIGHT KNEE 2 VIEWS History: Right total knee arthroplasty. Degenerative arthritis. Postop. FINDINGS: The patient is status post a right total knee arthroplasty. The hardware is intact. No frac ture or dislocation. Skin gelacio are in place. IMPRESSION: Right total knee arthroplasty. No evidence for hardware complication. ACT 112: Negative or not required by law. Electronically signed by: Jose Maria Maria M.D. 12/11/2021 2:38 PM
[2021-12-11] MEDS ORDERED: NALOXONE HCL 0.4 MG/1 ML VIAL/CARP IV PRN (15:34)
[2021-12-11] MEDS ORDERED: MAGNESIUM HYDROXIDE SUSP 30 ML UDC PO PRN (15:34)
[2021-12-11] MEDS ORDERED: METOCLOPRAMIDE HCL INJ 5 MG/ML 2 ML VIAL IV PRN (15:34)
[2021-12-11] MEDS ORDERED: bisacodyL 10 MG SUPP PR PRN (15:34)
[2021-12-11] MEDS ORDERED: KETOROLAC TROMETHAMINE 15 MG/ML VIAL IV SCH (15:34)
--- NOTE | 2021-12-11 15:44 | Anesthesiology Progress Note ---
Date of Service December 11, 2021 Anesthesia Post Procedure Vital Signs Vital Signs: Temp Pulse Resp BP Pulse Ox O2 Del Method O2 Flow Rate 12/11/21 15:10 84 16 121/93 95 Room Air 12/11/21 14:55 82 16 140/84 94 Room Air 12/11/21 14:40 36.5 C 86 16 138/82 94 Room Air 12/11/21 14:30 85 15 133/80 94 Room Air 12/11/21 14:20 94 H 16 136/82 94 Room Air 12/11/21 14:10 87 16 132/74 99 Oxymask 5 12/11/21 14:01 36.5 C 89 16 126/76 98 Oxymask 5 12/11/21 10:46 36.9 C 95 H 16 133/92 95 Room Air Transfer of Care Handoff Completed per policy Notes Mental Status: alert / awake / arousable and participated in evaluation Patient Amnestic to Procedure: Yes Nausea / Vomiting: adequately controlled Pain: adequately controlled Airway Patency, RR, SpO2: stable & adequate BP & HR: stable & adequate Hydration State: stable & adequate Anesthetic Complications: no major complications apparent and Pt Satisfied with anesthetic care
[2021-12-11] MEDS: SODIUM CHLORIDE 0.9% 1000ML 1,000 ML IV SCH (15:51)
[2021-12-11] MEDS ORDERED: INFLUENZA VACCINE HIGH DOSE PF 65+ 0.7 ML SYR IM ONE (21:00)
[2021-12-11] MEDS ORDERED: AMITRIPTYLINE HCL 100 MG TAB PO SCH (21:00)
[2021-12-11] MEDS ORDERED: ASPIRIN 81 MG ECTAB PO SCH (21:00)
[2021-12-11] MEDS ORDERED: LATANOPROST 0.005% OP SOLN 2.5 ML BTL OP SCH (21:00)
[2021-12-11] MEDS ORDERED: EZETIMIBE 10 MG TABLET PO SCH (21:00)
[2021-12-11] MEDS ORDERED: SENNA 8.6 MG TAB PO SCH (21:00)
[2021-12-11] MEDS: DOCUSATE SODIUM 100 MG CAP PO SCH (21:09)
[2021-12-11] MEDS: ACETAMINOPHEN 500 MG TAB PO SCH (21:11)
[2021-12-11] MEDS: ceFAZolin 2000MG 2,000 MG/15 ML SYR IV SCH (22:08)
[2021-12-11] MEDS: HYDROmorphone INJ 0.5 MG/0.5 ML SYR IV PRN (22:09)
[2021-12-11] MEDS: oxyCODONE HCL IR 5 MG TAB (IMMEDIATE RELEASE) PO PRN (23:40)
[2021-12-12] MEDS: HYDROmorphone INJ 0.5 MG/0.5 ML SYR IV PRN (02:50)
[2021-12-12] MEDS: SODIUM CHLORIDE 0.9% 1000ML 1,000 ML IV SCH (02:50)
[2021-12-12] MEDS: ceFAZolin 2000MG 2,000 MG/15 ML SYR IV SCH (03:32)
[2021-12-12] MEDS: ACETAMINOPHEN 500 MG TAB PO SCH (06:16)
[2021-12-12] MEDS: oxyCODONE HCL IR 5 MG TAB (IMMEDIATE RELEASE) PO PRN ×2 (07:08→13:15)
--- NOTE | 2021-12-12 07:34 | Orthopedic Progress Note ---
Date of Service December 12, 2021 Assessment & Plan (1) Status post right knee replacement: Overall she is doing fairly well. She is not having much pain in the right knee. She will be seen by physical therapy today for ambulation and range of motion exercises. She is on aspirin for DVT prophylaxis. She can be discharged home later today. She will follow-up with orthopedics in 2 weeks. Kai Shanks was seen and examined at bedside this morning. Overall she is doing fairly well. She is not having much pain in the right knee. She has been up and ambulating to the bathroom. She has no complaints.. Review of Systems All systems reviewed & are unremarkable except as noted in HPI & below. Physical Exam On physical examination of the right knee, the dressing is clean and dry. Her leg is out full extension. She has active dorsiflexion plantarflexion of her right ankle.. Results & Data Results & Data Laboratory Results . Diagnostic Findings Postoperative x-rays of the right knee show the prosthesis to be in anatomic alignment without any evidence of fracture, desiccation, or loosening. PG Care Time/CCT Total # of Minutes Spent Total Time Spent with Patient: Total time spent is greater than 50% in coordination of care (as documented) at patient's floor/unit and/or counseling patient: Coding Level of Care Code 74910 Post Operative Follow-Up Diagnoses Status post right knee replacement Z96.651
--- NOTE | 2021-12-12 07:35 | Discharge Summary ---
Date of Service December 12, 2021 Principal Diagnosis Same as "Discharge Diagnosis" noted below under Discharge Instructions. Discharge Exam On physical examination of the right knee, the dressing is clean and dry. Her leg is out full extension. She has active dorsiflexion plantarflexion of her right ankle.. Discharge Data Procedures Performed Operation Date: 12/11/21 12:50 Actual Procedures p Right Total Knee Arthroplasty(Right) - Leonides Pro DO Ordered Studies 12/11/21 05:00 US - OR guided needle placemen Routine Hospital Course (1) Status post right knee replacement: On December 11, 2021 Rimma arrived at [facility] and underwent a right knee replacement without complication. She had a spinal anesthetic. Postoperatively she was started on aspirin for DVT prophylaxis and transferred to the general orthopedic floors. Her hospital course was uneventful. On postop day #1, her vital signs were stable and her pain was well controlled. She was able to participate well with physical therapy doing ambulation and range of motion exercises. She was then discharged home. She will follow-up with orthopedics in 2 weeks. PG Care Time/CCT Total # of Minutes Spent Total Time Spent with Patient: Total time spent is greater than 50% in coordination of care (as documented) at patient's floor/unit and/or counseling patient: Discharge Plan Discharge Items Patient Disposition: Home - Home Health Services Reason For Visit: POST OP Discharge Diagnosis: Right knee replacement Activity: Per Instructions section Non-emergency contact: Surgeon Call non-emergency contact if: your wound has increased redness and your wound has increased drainage Follow-up/Referrals: Юлия Rodriguez D.O. [Primary Care Provider] - Diet: Regular Addtl Attending Provider Instructions: Activity and Therapy Recommendations: * If you are using [facility] then therapy will be provided at your home until they feel you have accomplished all of your goals. * If you are using [facility] then Physical Therapy will be provided until they feel you are ready to start Outpatient Physical Therapy. * If you are not using home therapy then Outpatient Physical Therapy should start about 3-5 days from your day of surgery. Therapy will last about 6-10 weeks * It is important not to put a pillow under your knee when you are relaxing or sleeping. It is just as important to make sure you are getting your knee perfectly straight as it is to regain your knee bend. * You were shown a series of exercises in the hospital. Do these exercises three times each day including the exercises you were shown in physical therapy. * Get up and walk several times each day. For the first four weeks, try not to stand or walk for more than one hour at a time. If you do stand or walk for more than one hour, you will not hurt anything, but your leg will likely swell. * As you feel comfortable, you may change from the walker or crutches to a cane and then to independent walking. Medications: * Narcotic You will likely be sent home from the hospital with a prescription for the narcotic pain medication that worked best throughout your stay. * Aspirin Most patients will be required to take Aspirin 81mg twice a day for 6 weeks after surgery. This is obtained [id number] and a prescription is not necessary. * Other medications may be prescribed for specific circumstances. If you have any questions, please call the office at . * Resume previous home medications unless otherwise instructed TEDs/Elastic Stockings: The white elastic stockings help limit swelling and prevent blood clots from forming in your legs.~ The more you wear them, the more they work. Wear them for six weeks. Dressing Care: The dressing can be changed after physical therapy on postop day #1. Daily dry dressing changes for a few days, especially if the incision is still draining some. If the incision is not draining then you may leave the gelacio open to air. If there is a little bit of drainage or if the gelacio are getting stuck on your clothing then cover the incision with a dry dressing. The gelacio will be removed at your 2 week follow-up appointment. Showering: You may shower 5 days from the day of surgery as long as the incision is no longer draining. You may shower with the gelacio exposed. Let soapy water run over the gelacio and pat them dry. Do not scrub or soak the incision. Things To Watch For: * Drainage from the incision site that occurs more than one week after your surgery. * Increased redness at the incision site. * Fever above 102 degrees Fahrenheit. * Unusual chest pain or shortness of breath. * Call [facility] at with any of the above prob lems Follow-Up Visit: Follow-up with Dr. Pro's PA (Leonides Guzman) 2-3 weeks after your day of surgery. He will remove your gelacio and answer any questions. If you have any additional questions or concerns, Dr Pro is usually in the office at the same time and will be available An appointment was probably scheduled when you signed-up for surgery in the office. If you have any questions call Office Instructions: More detailed instructions as well as Frequently Asked Questions were provided in a folder by our office when you signed-up for surgery. Please review these instructions when you get home. If you have any further questions or concerns, please feel free to call the office at [phone] Pending Studies at Discharge: No Stand-Alone Forms: My [facility] Medications and DC Order Prescriptions: New oxycodone-acetaminophen 5-325 mg tablet 1 tab PO Q6H PRN (Reason: pain) Qty: 30 0RF Continued amitriptyline 100 mg tablet 100 mg PO HS ezetimibe 10 mg tablet 10 mg PO HS lisinopril 10 mg tablet 10 mg PO QAM meloxicam 7.5 mg tablet 7.5 mg PO QAM omeprazole 20 mg capsule,delayed release(DR/EC) 20 mg PO QAM latanoprost 0.005 % drops 1 drops OP QPM docusate sodium [Stool Softener] 100 mg capsule 100 mg PO QPM PRN (Reason: Constipation) ascorbic acid (vitamin C) 1,000 mg tablet 1 gm PO QAM Oxytrol 3.9 mg/24 hr patch semiweekly 3.9 mg transdermal 2XWK tramadol 50 mg tablet 50 mg PO Q8H PRN (Reason: pain) Qty: 30 0RF cholecalciferol (vitamin D3) [Vitamin D3] 25 mcg (1,000 unit) Tablet 1,000 unit PO QAM Neuriva Plus Brain Performance 1.7 mg-400 mcg- 2.4 mcg Capsule 1 cap PO QAM iron 1 tab PO DAILY Changed aspirin [Adult Low Dose Aspirin] 81 mg tablet,delayed release (DR/EC) 81 mg PO BID 42 Days Qty: 0 0RF Discharge Orders: Discharge Order (Routine); Ordered 12/12/21 Ordered By: Leonides Pro Admission Data Admit Date/Time: 12/11/21 14:00 Attending Provider: Leonides Pro Admit Provider: Leonides Pro Primary Care Provider: Юлия Rodriguez
[2021-12-12] MEDS ORDERED: dexAMETHasone 4 MG TAB PO SCH (08:00)
[2021-12-12] MEDS: DOCUSATE SODIUM 100 MG CAP PO SCH ×2 (08:29→08:30)
[2021-12-12] MEDS ORDERED: TRANEXAMIC ACID 650 MG TABLET PO SCH (09:00)
[2021-12-12] MEDS ORDERED: MULTIVITAMIN TAB PO SCH (09:00)
[2021-12-12] MEDS ORDERED: lisinopril 10 MG TAB PO SCH (09:00)
[2021-12-12] MEDS ORDERED: PANTOprazole 40 MG TAB PO SCH (09:00)
== END 2021-12-12 13:47 | disposition home health service (06) ==
LOC: 3W 10:01 → ASU 10:01